=== PATIENT | female | born 1990 | race Caucasian/White ===

== ENCOUNTER 2017-01-13 14:35 | Emergency (ER) | payer MEDICAID ==
--- NOTE | 2017-01-13 14:47 | Emergency Department Record ---
History of Present Illness - General Chief Complaint: Ankle/Foot Injury Stated Complaint: R ANKLE INJURY Time Seen by Provider: 01/13/17 14:42 Source: Patient Mode of Arrival: Ambulatory Limitations: No limitations - History of Present Illness Initial Comments: 26 yo female presents with right ankle pain since Friday. She was drunk that night and does not recall the injury. She has lateral ankle pain and bruising. She has mild right side pain as well. No fevers, nausea, vomiting or diarrhea. No foot or knee pain. MD Complaint: Ankle injury -: Days(s) (2) Injury: Ankle: Right Type of Injury: Unknown Place: Home Severity: Moderate Improves With: Immobilization, Rest Worsens With: Palpation, Weight bearing Context: Other Associated Symptoms: Able to partially bear weight - Related Data Home Medications Medication Instructions Recorded Confirmed Last Taken Fluoxetine HCl [Prozac] 10 mg PO DAILY 01/13/17 01/13/17 Unknown Allergies Allergy/AdvReac Type Severity Reaction Status Date / Time No Known Drug Allergies Allergy Verified 01/13/17 14:45 Review of Systems Constitutional: Denies: Chills, Fever, Malaise, Weakness Eyes: Denies: Eye discharge, Eye pain, Photophobia ENT: Denies: Congestion, Throat pain Respiratory: Denies: Cough Cardiovascular: Denies: Chest pain, Palpitations, Syncope Endocrine: Denies: Fatigue Gastrointestinal: Denies: Abdominal pain, Diarrhea, Nausea, Vomiting Genitourinary: Reports: Dysuria (mild discomfort yesterday with urination but not today). Denies: Abnormal menses, Hematuria, Urgency Musculoskeletal: Reports: Arthralgia, Back pain, Joint swelling. Denies: Myalgia, Neck pain Skin: Reports: As per HPI, Bruising, Change in color. Denies: Lesions, Rash Neurological: Denies: Headache Psychiatric: Denies: Anxiety Hematological/Lymphatic: Denies: Blood Clots, Easy bleeding, Easy bruising Physical Exam - General General Appearance: Alert, Oriented x3, Cooperative, No acute distress Limitations: No limitations - Head Head exam: Atraumatic, Normocephalic, Normal inspection - Eye Eye exam: Normal appearance. negative: Conjunctival injection, Periorbital swelling, Scleral icterus - ENT ENT exam: Normal exam, Mucous membranes moist Ear exam: Normal external inspection Nasal Exam: Normal inspection Mouth exam: Normal external inspection Teeth exam: Normal inspection - Neck Neck exam: Normal inspection, Full ROM. negative: Tenderness - Respiratory Respiratory exam: Normal lung sounds bilaterally. negative: Respiratory distress - Cardiovascular Cardiovascular Exam: Regular rate, Normal rhythm, Normal heart sounds - GI/Abdominal GI/Abdominal exam: Soft. negative: Distended, Tenderness - Rectal Rectal exam: Deferred - exam: Deferred - Extremities Extremities exam: Joint swelling (lateral ankle, intact achilles), Other (the right foot is not tender to palpaiton, no 5th MT tenderness). negative: Normal inspection (bruising to the right lateral foot), Pedal edema, Tenderness - Back Back exam: Reports: Normal inspection, Full ROM. Denies: CVA tenderness (R), CVA tenderness (L), Muscle spasm, Paraspinal tenderness, Rash noted, Tenderness , Vertebral tenderness - Neurological Neurological exam: Alert, Normal gait, Oriented X3, Reflexes normal - Psychiatric Psychiatric exam: Normal affect, Normal mood - Skin Skin exam: Other (brusiing as noted) Course - Reevaluation(s) Reevaluation #1: The patient was seen and examined XR ordered She had mild dysuria yesterday but not today so a UA was ordered 01/13/17 14:46 Reevaluation #2: The prelim XR read by me of the right ankle is negative for acute injury UA is negative for acute changes 01/13/17 15:26 Reevaluation #3: Final read very faint lucency medial I explained this to the patient No donor site seen She will be placed in donJoy and crutches She has a PCP for follow up 01/13/17 15:34 Disposition Disposition: Discharge Clinical Impression: Ankle sprain Qualifiers: Encounter type: initial encounter Involved ligament of ankle: unspecified ligament Laterality: right Qualified Code(s): S93.401A - Sprain of unspecified ligament of right ankle, initial encounter Disposition: Home, Self-Care Condition: (1) Good Instructions: Ankle Sprain (ED) Additional Instructions: Ice and elevate to prevent swelling Use the splint for support until the pain is gone Recheck in one week if any pain continues Tylenol or Motrin for discomfort Forms: Patient Portal Access Time of Disposition: 15:35
[2017-01-13 15:00] LABS: URINE APPEARANCE CLEAR; URINE BILIRUBIN NEGATIVE (NEGATIVE); URINE BLOOD NEGATIVE (NEGATIVE); URINE COLOR YELLOW; URINE GLUCOSE (UA) NEGATIVE (NEGATIVE); URINE KETONE NEGATIVE (NEGATIVE); URINE LEUKOCYTE ESTERASE NEGATIVE (NEGATIVE); URINE NITRITE NEGATIVE (NEGATIVE); URINE PROTEIN TRACE (NEGATIVE); URINE UROBILINOGEN 0.2 E.U./dL (0.20 - 1.00)
[2017-01-13 15:25] LABS: HCG,QUALITATIVE URINE NEGATIVE (NEGATIVE)
== END 2017-01-13 15:48 | disposition home or self-care (01) ==
LOC: ER 14:35
DX: S93.401A Sprain of unspecified ligament of right ankle, initial encounter (principal); R30.0 Dysuria; X58.XXXA Exposure to other specified factors, initial encounter
CPT/HCPCS: 81003; 81025; 99283